=== PATIENT | female | born 1975 ===

== ENCOUNTER → 2017-10-31 | Outpatient (CLI) | payer OTHER | LOC: MC.RAD 08:20 | DX: N63.20 Unspecified lump in the left breast, unspecified quadrant (principal); N64.89 Other specified disorders of breast; Z90.710 Acquired absence of both cervix and uterus; Z85.41 Personal history of malignant neoplasm of cervix uteri ==

== ENCOUNTER → 2020-07-19 | Outpatient (CLI) | payer SELFPAY ==
[~2020-07-19] MED LIST: NORCO 325 MG-51 TAB PO
== END ==
LOC: ZCOL.LAB 17:57
DX: Z20.828 Contact with and (suspected) exposure to other viral communicable diseases (principal)

== ENCOUNTER 2020-07-22 10:19 | Day surgery (SDC) | payer SELFPAY ==
[~2020-07-22] VITALS: Ht 154.9 cm; Wt 62.3 kg
[2020-07-22 10:48] VITALS: BP 126/69; PULSE 55; TEMP 98.4
[2020-07-22 11:31] LABS: BASO % 0.5 % (0.0-2.0); GRAN # 2.7 (1.4-6.5); GRAN % 65.3 % (42.2-75.2); HEMATOCRIT 38.4 % (37.0-47.0); HEMOGLOBIN 13.1 g/dl (12.5-16.0); LYMPH # 1.1 (1.2-3.4); LYMPH % 26.9 % (20.0-51.0); MEAN CELL VOLUME 92 fl (80.0-100.0); MEAN CORPUSCULAR HEMOGLOBIN 31 pg (27.0-31.0); MEAN CORPUSCULAR HGB CONC 34 g/dl (33.0-37.0); MEAN PLATELET VOLUME 11.6 fl (7.4-10.4); MONO # 0.2 (0.1-0.6); MONO % 5.8 % (1.7-9.3); PLATELET COUNT 148 K/mm3 (130-400); RED BLOOD COUNT 4.18 M/mm3 (4.10-5.30); REDCELL DISTRIBUTION WIDTH-CV 12.2 % (11.5-14.5)
[2020-07-22 11:40] LABS: ALBUMIN 3.9 gm/dL (3.5-5.0); BILIRUBIN,TOTAL 0.7 mg/dL (0.0-1.0); CALCIUM 9.4 mg/dL (8.4-10.2); CREATININE, serum 0.6 (0.52-1.25); POTASSIUM 4.4 mmol/L (3.4-5.0); TOTAL PROTEIN 6.9 gm/dL (6.4-8.2)
[2020-07-22] MEDS ORDERED: NORCO 325 MG-51 TAB PO (14:46)
[2020-07-22 15:35] VITALS: BP 119/60; PULSE 64; TEMP 98
--- NOTE | 2020-07-22 15:35 | NUR ---
The patient arrived back to [facility] from the recovery room at this time. The patient appears drowsy but arouses to her name. The patient's post operative vital signs were started at this time. The patient has oxygen in place at 2L per nasal cannula. The patient has 5 bandaids to her abdomen that appear clean, dry and intact. Call light is within reach. Will continue to monitor the patient.
[2020-07-22 15:50] VITALS: BP 132/63; PULSE 62
--- NOTE | 2020-07-22 15:50 | NUR ---
The patient's vital signs appear stable. The patient's was brought back to be at her bedside. The patient denies wanting anything to eat or drink at this time. Will continue to monitor the patient.
[2020-07-22 16:05] VITALS: BP 122/53; PULSE 63
--- NOTE | 2020-07-22 16:05 | NUR ---
The patient agrees to try some toast and apple juice at this time. Vital signs appear stable. The patient's oxygen was weaned down to 1L per nasal cannula. remains at bedside. Will continue to monitor the patient.
[2020-07-22 16:20] VITALS: BP 137/52; PULSE 62
--- NOTE | 2020-07-22 16:20 | NUR ---
The patient appears to be tolerating the food and drink well. Vital signs appear stable. The patient was weaned down to room air. Call light remains within reach. Will continue to monitor the patient.
--- NOTE | 2020-07-22 16:35 | NUR ---
The patient was given a PRN dose of [place] for continued pain control.
[2020-07-22 16:55] VITALS: BP 135/60; PULSE 65
--- NOTE | 2020-07-22 17:20 | NUR ---
Discharge instructions were reviewed with the patient at this time. She verbalized understanding and has no questions for the nurse at this time. The patient's INT to her right hand was removed and a pressure dressing was applied to the site. The patient's ran to the car to grab a different pair of pants for the patient to change into.
--- NOTE | 2020-07-22 17:45 | NUR ---
The patient was escorted out via wheelchair to a private vehicle by MICHELLE Mason. The patient's belongings and discharge paperwork were sent with her. The patient's is present to drive her home.
== END 2020-07-22 17:45 | disposition home or self-care (01) ==
LOC: SDCO 10:19
PROVIDERS: Surgery
DX: K43.2 Incisional hernia without obstruction or gangrene (principal); K76.0 Fatty (change of) liver, not elsewhere classified; Z98.84 Bariatric surgery status; Z20.828 Contact with and (suspected) exposure to other viral communicable diseases; Z90.710 Acquired absence of both cervix and uterus; Z90.49 Acquired absence of other specified parts of digestive tract; Z90.722 Acquired absence of ovaries, bilateral; Z85.42 Personal history of malignant neoplasm of other parts of uterus; Z85.43 Personal history of malignant neoplasm of ovary
CPT/HCPCS: C1781; J0690; J1100; J1170; J1885; J2405; J2704; J3010; J7120

== ENCOUNTER → 2020-10-02 | Outpatient (CLI) | payer SELFPAY | LOC: ZCOL.LAB 23:55 | DX: U07.1 COVID-19 (principal) ==